=== PATIENT | male | born 1930 | race Caucasian/White ===

== ENCOUNTER 2017-07-14 13:09 | Emergency (ER) | payer OTHER ==
[~2017-07-14] VITALS: Ht 185.4 cm; Wt 99.8 kg
[2017-07-14 13:20] VITALS: BP 138/85
[2017-07-14] MEDS ORDERED: IBUPROFEN 600 MG TABLET PO ONE ×2 (14:17→14:30)
--- NOTE | 2017-07-14 14:55 | NUR ---
Patient discharged to home in stable condition. Written and verbal after care instructions given. Patient verbalizes understanding of instruction.
== END 2017-07-14 14:57 | disposition home or self-care (01) ==
LOC: ER 13:10
DX: S40.012A Contusion of left shoulder, initial encounter (principal); Z98.890 Other specified postprocedural states; W01.0XXA Fall on same level from slipping, tripping and stumbling without subsequent striking against object, initial encounter; Y92.89 Other specified places as the place of occurrence of the external cause; Y93.89 Activity, other specified; Y99.8 Other external cause status
CPT/HCPCS: 73030; 73060; 99284; A4606; Z7610

== ENCOUNTER 2017-09-29 21:51 | Emergency (ER) | payer OTHER ==
[~2017-09-29] VITALS: Ht 182.9 cm; Wt 86.2 kg
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
[2017-09-29] MEDS ORDERED: ASPI81TA2 PO (22:34)
--- NOTE | 2017-09-29 22:40 | NUR ---
Emmett sotomayor in [facility] - 09/29/17 at 2256 by SOLOMON PT RETURNED FROM CT.
--- NOTE | 2017-09-29 22:41 | NUR ---
PT TO CT.
--- NOTE | 2017-09-29 22:56 | NUR ---
PT RETURNED FROM CT.
--- NOTE | 2017-09-29 23:00 | NUR ---
CONCRETE ANALYST DEGRASSI AT BEDSIDE FOR LAC REPAIR.
[2017-09-29] MEDS ORDERED: LIDOCAINE 1%-EPI 1:100,000 50 ML VIAL IJ ONE ×2 (23:03→23:30)
[2017-09-29] MEDS ORDERED: TDAP [DIPH/PERTUSSIS/TET] 0.5 ML VIAL IM ONE (23:44)
--- NOTE | 2017-09-29 23:49 | NUR ---
Patient discharged to home in stable condition. Written and verbal after care instructions given. Patient verbalizes understanding of instruction. ambulatory with a steady gait. w/c out per request. pt instructed not to drive. pt verbalize understanding. accompanied by
[2017-09-29 23:52] VITALS: BP 148/68
[2017-09-30] MEDS ORDERED: TDAP [DIPH/PERTUSSIS/TET] 0.5 ML VIAL IM ONE
== END 2017-09-29 23:52 | disposition home or self-care (01) ==
LOC: ER 21:52
DX: S01.01XA Laceration without foreign body of scalp, initial encounter (principal); S70.01XA Contusion of right hip, initial encounter; N40.0 Benign prostatic hyperplasia without lower urinary tract symptoms; Z98.890 Other specified postprocedural states; Z79.82 Long term (current) use of aspirin; W01.10XA Fall on same level from slipping, tripping and stumbling with subsequent striking against unspecified object, initial encounter; Y93.01 Activity, walking, marching and hiking; Y92.89 Other specified places as the place of occurrence of the external cause; Y99.8 Other external cause status
CPT/HCPCS: 12001; 70450; 90471; 90715; 99284; A4606; J3490; A6402; A6403; Z7610

== ENCOUNTER 2017-10-09 10:09 | Emergency (ER) | payer MEDICARE, OTHER ==
[~2017-10-09] VITALS: Ht 182.9 cm; Wt 93.0 kg
[2017-10-09 10:09] VITALS: BP 143/55
[~2017-10-09 10:09] MED LIST: ASPI81TA2 PO
== END 2017-10-09 11:08 | disposition home or self-care (01) ==
LOC: ER 10:11
DX: S01.01XD Laceration without foreign body of scalp, subsequent encounter (principal); Z48.02 Encounter for removal of sutures; N40.0 Benign prostatic hyperplasia without lower urinary tract symptoms; Z86.73 Personal history of transient ischemic attack (TIA), and cerebral infarction without residual deficits; Z98.890 Other specified postprocedural states; Z79.82 Long term (current) use of aspirin; X58.XXXD Exposure to other specified factors, subsequent encounter
CPT/HCPCS: 99281; A4606; Z7502; Z7610

== ENCOUNTER 2019-03-30 03:12 | Emergency (ER) | payer MEDICARE, OTHER ==
[~2019-03-30] VITALS: Ht 182.9 cm; Wt 117.9 kg
[~2019-03-30 03:12] MED LIST changes: +ASPI-1169 PO; -ASPI81TA2 PO
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
--- NOTE | 2019-03-30 03:25 | NUR ---
PT REFUSED CERVICAL COLLAR, AWARE
[2019-03-30] MEDS ORDERED: TDAP [DIPH/PERTUSSIS/TET] 0.5 ML VIAL IM ONE (03:30)
--- NOTE | 2019-03-30 03:31 | NUR ---
PT BROUGHT BY RADIOLOGY FOR CT
--- NOTE | 2019-03-30 03:44 | NUR ---
PT RETURNED FROM CT
[2019-03-30] MEDS ORDERED: LIDOCAINE 1%-EPI 1:100,000 20 ML VIAL ONE (04:13)
--- NOTE | 2019-03-30 04:39 | NUR ---
Patient discharged to home in stable condition. Written and verbal after care instructions given. Patient verbalizes understanding of instruction. Discharged via wheelchair assistance to car, left with
[2019-03-30 04:41] VITALS: BP 144/89
== END 2019-03-30 04:49 | disposition home or self-care (01) ==
LOC: ER 03:13
DX: S01.01XA Laceration without foreign body of scalp, initial encounter (principal); S09.8XXA Other specified injuries of head, initial encounter; N40.0 Benign prostatic hyperplasia without lower urinary tract symptoms; Z86.12 Personal history of poliomyelitis; Z86.73 Personal history of transient ischemic attack (TIA), and cerebral infarction without residual deficits; Z79.82 Long term (current) use of aspirin; Z90.79 Acquired absence of other genital organ(s); W18.09XA Striking against other object with subsequent fall, initial encounter; Y93.89 Activity, other specified; Y92.89 Other specified places as the place of occurrence of the external cause; Y99.8 Other external cause status
CPT/HCPCS: 12001; 70450; 72125; 99284; A6402; A6403 ×2; J3490; L0172 ×2

== ENCOUNTER 2019-04-05 14:36 | Emergency (ER) | payer MEDICARE ==
[~2019-04-05] VITALS: Ht 182.9 cm; Wt 117.9 kg
[2019-04-05 14:36] VITALS: BP 158/65
== END 2019-04-05 15:12 | disposition home or self-care (01) ==
LOC: ER 14:36
DX: S01.91XD Laceration without foreign body of unspecified part of head, subsequent encounter (principal); N40.0 Benign prostatic hyperplasia without lower urinary tract symptoms; Z86.73 Personal history of transient ischemic attack (TIA), and cerebral infarction without residual deficits; Z98.890 Other specified postprocedural states; Z79.82 Long term (current) use of aspirin; X58.XXXD Exposure to other specified factors, subsequent encounter
CPT/HCPCS: 99281; A6402; Z7502